=== PATIENT | female | born 1955 | race African-American/Black ===

== ENCOUNTER → 2017-02-02 | Outpatient (CLI) | payer OTHER | LOC: RAD 08:37 | PROVIDERS: ATTEND Family Medicine | DX: M54.5 Low back pain (principal) | CPT/HCPCS: 72148 ==

== ENCOUNTER → 2017-02-14 | Outpatient (CLI) | payer BC, OTHER ==
[2017-02-14 11:17] LABS: HEMATOCRIT 38.9 % (36.0-47.0); HEMOGLOBIN 12.9 g/dL (12.0-15.5); HGB HCT DIFFERENCE -0.2; MEAN CORPUSCULAR HEMOGLOBIN 27.9 pg (27.0-33.4); MEAN CORPUSCULAR HGB CONC 33.1 g/dL (32.0-36.0); MEAN CORPUSCULAR VOLUME 84 fl (80-97); RED BLOOD COUNT 4.62 10^6/uL (3.72-5.28); RED CELL DISTRIBUTION WIDTH 14.5 % (11.5-14.0); WHITE BLOOD COUNT 6.6 10^3/uL (4.0-10.5)
[2017-02-14 11:30] LABS: ALANINE AMINOTRANSFERASE 38 U/L (9-52); ALBUMIN 3.9 g/dL (3.5-5.0); ALKALINE PHOSPHATASE 88 U/L (38-126); ANION GAP 13 (5-19); ASPARTATE AMINO TRANSFERASE 24 U/L (14-36); BILIRUBIN,DIRECT 0.3 mg/dL (0.0-0.4); BILIRUBIN,TOTAL 0.4 mg/dL (0.2-1.3); BLOOD UREA NITROGEN 18 mg/dL (7-20); CALCIUM 9.2 mg/dL (8.4-10.2); CARBON DIOXIDE 29 mmol/L (22-30); CHLORIDE 105 mmol/L (98-107); CHOLESTEROL 212.66 mg/dL (0-200); CREATININE RESULT 0.69 mg/dL (0.52-1.25); Direct HDL 54 mg/dL (>40); GLUCOSE 88 mg/dL (75-110); MAGNESIUM 1.9 mg/dL (1.6-2.3); POTASSIUM 4.5 mmol/L (3.6-5.0); SODIUM 146.7 mmol/L (137-145); TOTAL PROTEIN 6.8 g/dL (6.3-8.2); TRIGLYCERIDES 58 mg/dL (<150)
[2017-02-14 11:42] LABS: DIRECT LDL 137 mg/dL (<100)
== END ==
LOC: OD 09:45
PROVIDERS: ATTEND Internal Medicine Cardiovascular Disease
DX: Z79.899 Other long term (current) drug therapy (principal)
CPT/HCPCS: 36415; 80048; 80061; 80076; 83735; 84443; 85027

== ENCOUNTER → 2017-05-17 | Outpatient (CLI) | payer BC, OTHER ==
[~2017-05-17] MED LIST: REGADENOSON INJ 0.4 MG/5 ML DISP.SYRIN IV ONE
--- NOTE | 2017-05-19 08:37 | RADIOLOGY REPORT ---
STRESS TEST REPORT PATIENT NAME: TYREE FREEDMAN ROOM#: DATE OF SERVICE: 05/17/2017 AGE: 62Y ORDER#: [id number] REFERRING MD: DANIA MATA M.D. INDICATION: For assessment of chest pains. PROCEDURE PERFORMED REST/STRESS SINGLE ISOTOPE CARDIOLITE SPECT IMAGING WITH IV LEXISCAN STRESS AND GATED SPECT IMAGING CLINICAL HISTORY This is a 62-year-old black female with no known coronary artery disease but has cardiac risk factors of hypertension and family history. Current symptomatology includes chest pains. PROCEDURE The patient received IV Lexiscan, 0.4 mg infused over ten seconds and flushed. The resting heart rate was 79 bpm and increased to 111 bpm at end infusion. The resting BP was 109/70 and increased to 137/68 at end infusion. The patient had no symptoms of chest pains. The resting 12 lead EKG showed normal sinus rhythm at 90 bpm, poor R progression in the anterior precordial leads seen. At end infusion, the EKG showed sinus tachycardia, 115 bpm, with mild [address] depression in the inferolateral leads (leads 2, 3, AVF, V4-V6). Myocardial perfusion imaging was performed at rest 60 minutes following injection of 10.6 mCi Cardiolite. Ten seconds after the IV Lexiscan injection, patient injected with 30.4 mCi Cardiolite and flushed. Gated post stress tomographic imaging was performed 60 minutes after stress. FINDINGS The overall quality of the study is good. The left ventricular cavity is noted to be normal in size on both the rest and stress studies. There is no evidence of abnormal transient ischemic dilatation of the left ventricle. The TID ratio was 1.29, this is not confirmed visually. SPECT images showed no evidence of IV Lexiscan induced reversible ischemia and no fixed perfusion defects. The gated SPECT imaging showed normal motion and contraction of all LV segments. The left ventricular ejection fraction was calculated to be 74%. IMPRESSION: MYOCARDIAL PERFUSION IMAGING IS NORMAL. THERE IS NO EVIDENCE OF IV LEXISCAN INDUCED REVERSIBLE ISCHEMIA. NO FIXED PERFUSION DEFECTS. OVERALL LEFT VENTRICULAR SYSTOLIC FUNCTION WAS NORMAL AT 74% EJECTION FRACTION WITH NO REGIONAL WALL MOTION ABNORMALITY SEEN. NO PRIOR STUDIES FOR COMPARISON. INTERPRETING PHYSICIAN: LEN BENOIT M.D. /: KYLE TT: [id number] ID: [id number] /: [id number] TD: [id number] JOB: [id number] cc:Karma HOWELL M.D. > MARYURI
== END ==
LOC: RAD 06:06
PROVIDERS: ATTEND Internal Medicine Cardiovascular Disease
DX: R07.89 Other chest pain (principal)
CPT/HCPCS: 93017; 78452; A9500; J2785; Q9969

== ENCOUNTER → 2017-06-20 | Outpatient (CLI) | payer OTHER ==
--- NOTE | 2017-06-20 17:57 | WOMENS IMAGING REPORT ---
EXAM DESCRIPTION: BILAT SCREENING MAMMO W/CAD COMPLETED DATE/TIME: 06/20/2017 11:22 am REASON FOR STUDY: Z12.31, ROUTINE SCREENING MAMMO Z12.31 ENCNTR SCREEN MAMMOGRAM FOR MALIGNANT NEOP LASM OF ABENA COMPARISON: 10/03/2015 and 09/23/2014. TECHNIQUE: Standard craniocaudal and mediolateral oblique views of each breast recorded using digita l acquisition. LIMITATIONS: None. FINDINGS: No masses, calcifications or architectural distortion. No areas of suspicion. Read with the assistance of CAD. .[facility] - R2 Cenova Version 1.3 .[facility] Imaging - R2 Cenova Version 1.3 .[facility] - R2 Cenova Version 2.4 .[facility] [place] Cenova Version 2.4 .[facility] - R2 Osd Clerk Version 9.2 IMPRESSION: NORMAL MAMMOGRAM. BIRADS 1. BREAST DENSITY: b. There are scattered areas of fibroglandular density. BIRAD: 1 NEGATIVE RECOMMENDATION: ROUTINE SCREENING COMMENT: The patient has been notified of the results by letter per MQSA requirements. Additional no tification policies are in place for contacting patient with suspicious or incomplete findings. Quality ID #225: The [employer] recommends an annual screening mammogram for women aged 40 years or over. This facility utilizes a reminder system to ensure that all patients receive reminder letters, and/or direct phone calls for appointments. This includes reminders for routine scr eening mammograms, diagnostic mammograms, or other Breast Imaging Interventions when appropriate. Th is patient will be placed in the appropriate reminder system. The [employer] (ACR) has developed recommendations for screening MRI of the breast s in certain patient populations, to be used in conjunction with mammography. Breast MRI surveillanc e may be appropriate for women with more than 20% lifetime risk of developing breast cancer as deter mined by genetic testing, significant family history of the disease, or history of mantle radiation f or Hodgkins Disease. ACR Practice Guidelines 2008. TECHNICAL DOCUMENTATION: FINDING NUMBER: (1) ASSESSMENT: (1) JOB ID: [id number] [email or web address]- All Rights Reserved
== END ==
LOC: WI 10:44
PROVIDERS: ATTEND Family Medicine
DX: Z12.31 Encounter for screening mammogram for malignant neoplasm of breast (principal)
CPT/HCPCS: 77067; G0202

== ENCOUNTER 2020-10-19 16:18 | Emergency (ER) | payer OTHER ==
[2020-10-19] MEDS ORDERED: OXYCODONE-ACETAMINOPHEN 5-325 MG TABLET PO ONE (17:17)
--- NOTE | 2020-10-19 17:21 | ER Document Report ---
ED Medical Screen (RME) - General Chief Complaint: Fall Stated Complaint: FALL/RIGHT ELBOW INJURY Time Seen by Provider: 10/19/20 17:16 Primary Care Provider: DANIA MATA MD [Primary Care Provider] - Follow up as needed Notes: HPI: 65-year-old female presenting with injury sustained in a mechanical fall. Tripped and fell forward with her arm outstretched. Complains of pain to the right knee right hip right lower arm and right upper arm. States she did her head, no loss of consciousness denies headache or neck pain is not on blood thinners PHYSICAL EXAMINATION: Moderate tenderness through the right humerus, right forearm. Limited exam for lower extremities but mild tenderness over the right hip and right knee but is able to fully range the leg at the knee I have greeted and performed a rapid initial assessment of this patient. A comprehensive ED assessment and evaluation of the patient, analysis of test results and completion of medical decision making process will be conducted by an additional ED providers. TRAVEL OUTSIDE OF THE [place] IN LAST 30 DAYS: No - Related Data Allergies/Adverse Reactions: No Known Allergies Allergy (Unverified 10/19/20 17:11) Past Medical History - Social History Chew tobacco use (# tins/day): No Frequency of alcohol use: None Drug Abuse: None Physical Exam - Vital signs Vitals: Temp Pulse Resp BP Pulse Ox 97.7 F 90 18 146/94 H 99 10/19/20 16:34 10/19/20 16:34 10/19/20 16:34 10/19/20 16:34 10/19/20 16:34 Course - Vital Signs Vital signs: Temp Pulse Resp BP Pulse Ox 97.7 F 90 18 146/94 H 99 10/19/20 16:34 10/19/20 16:34 10/19/20 16:34 10/19/20 16:34 10/19/20 16:34 Doctor's Discharge - Discharge Referrals: DANIA MATA MD [Primary Care Provider] - Follow up as needed
--- NOTE | 2020-10-19 18:16 | RADIOLOGY REPORT (SQ) ---
EXAM DESCRIPTION: HUMERUS RIGHT IMAGES COMPLETED DATE/TIME: 10/19/2020 5:49 pm REASON FOR STUDY: fall COMPARISON: None. NUMBER OF VIEWS: Two views. TECHNIQUE: Two radiographic images were acquired of the right humerus to include elbow and shoulder in at least one projection. LIMITATIONS: Limited images. Suboptimal views of the shoulder. FINDINGS: MINERALIZATION: Normal. BONES: No acute fracture or dislocation. No worrisome bone lesions. SOFT TISSUES: No obvious swelling or foreign body. OTHER: No other significant finding. IMPRESSION: LIMITED STUDY. NO RADIOGRAPHIC EVIDENCE OF ACUTE INJURY. TECHNICAL DOCUMENTATION: JOB ID: [id number] 2010 [employer]- All Rights Reserved Reading location - IP/workstation name: [email or web address]
--- NOTE | 2020-10-19 18:17 | RADIOLOGY REPORT (SQ) ---
EXAM DESCRIPTION: FOREARM RIGHT IMAGES COMPLETED DATE/TIME: 10/19/2020 5:49 pm REASON FOR STUDY: fall COMPARISON: None. NUMBER OF VIEWS: Two views. TECHNIQUE: Two radiographic images acquired of the right forearm, including elbow and wrist in at le ast one projection. LIMITATIONS: Limited positioning. FINDINGS: MINERALIZATION: Normal. BONES: There is fracture dislocation of the elbow. Limited visualization. There is fracture of the proximal radius and radial head with displacement of the radial head. SOFT TISSUES: No obvious swelling or foreign body. OTHER: No other significant finding. IMPRESSION: LIMITED STUDY. FRACTURE DISLOCATION AT THE ELBOW INVOLVING AT LEAST THE PROXIMAL RADIUS AND RADIAL HEAD. TECHNICAL DOCUMENTATION: JOB ID: [id number] 2010 [email or web address]- All Rights Reserved Reading location - IP/workstation name: [email or web address]
--- NOTE | 2020-10-19 18:18 | RADIOLOGY REPORT (SQ) ---
EXAM DESCRIPTION: HIP RIGHT AP/LATERAL IMAGES COMPLETED DATE/TIME: 10/19/2020 5:49 pm REASON FOR STUDY: fall COMPARISON: None. NUMBER OF VIEWS: Two views. TECHNIQUE: AP pelvis and additional frog legview of the right hip. LIMITATIONS: Limited visualization of the upper pelvis and lower lumbar spine. FINDINGS: MINERALIZATION: Normal. RIGHT HIP: No fracture or dislocation. No worrisome bone lesions. LEFT HIP: No fracture or dislocation. No worrisome bone lesions. Limited views. PUBIS AND ISCHIUM: Sclerotic changes at few defect. No fracture. PELVIS: No fracture. SACRUM: No fracture or dislocation. No worrisome bone lesions. LOWER LUMBAR SPINE: No fracture or dislocation. No worrisome bone lesions. No significant disc disea se. SOFT TISSUES: No findings. OTHER: No other significant finding. IMPRESSION: NEGATIVE STUDY OF THE RIGHT HIP. NO RADIOGRAPHIC EVIDENCE OF ACUTE INJURY. TECHNICAL DOCUMENTATION: JOB ID: [id number] 2010 [employer]- All Rights Reserved Reading location - IP/workstation name: [email or web address]
--- NOTE | 2020-10-19 18:19 | RADIOLOGY REPORT (SQ) ---
EXAM DESCRIPTION: KNEE RIGHT 4 VIEWS IMAGES COMPLETED DATE/TIME: 10/19/2020 5:49 pm REASON FOR STUDY: fall COMPARISON: None. NUMBER OF VIEWS: Four views. TECHNIQUE: AP, lateral, and both oblique radiographic images acquired of the right knee. LIMITATIONS: None. FINDINGS: MINERALIZATION: Normal. BONES: No acute fracture or dislocation. Joint space narrowing with small osteophytes. No worrisome bone lesions. JOINT: No effusion. SOFT TISSUES: No soft tissue swelling. No radio-opaque foreign body. OTHER: No other significant finding. IMPRESSION: DEGENERATIVE CHANGES. NO RADIOGRAPHIC EVIDENCE OF ACUTE INJURY. TECHNICAL DOCUMENTATION: JOB ID: [id number] 2010 [employer]- All Rights Reserved Reading location - IP/workstation name: [email or web address]
--- NOTE | 2020-10-19 18:29 | ER Document Report ---
ED General - General Chief Complaint: Fall Stated Complaint: FALL/RIGHT ELBOW INJURY Time Seen by Provider: 10/19/20 17:16 Primary Care Provider: DANIA MATA MD [PEDIATRICS] - Follow up as needed THONY SCHNEIDER DO [ACTIVE STAFF] - Follow up as needed TRAVEL OUTSIDE OF THE [place] IN LAST 30 DAYS: No - HPI Notes: 65-year-old female presents with right elbow pain after she fell. Patient states that she was at home, she tripped over a cord and fell to the ground with her arm outstretched. This occurred around 3:20 PM. She states she "just barely" hit her head, no loss of consciousness. Denies use of blood thinners or aspirin. She complains of pain to her right knee and hip in addition to the arm pain. Has been ambulatory since the fall. No medications taken prior to arrival. - Related Data Allergies/Adverse Reactions: No Known Allergies Allergy (Unverified 10/19/20 17:11) Past Medical History - General Information source: Patient - Social History Smoking Status: Never Smoker Chew tobacco use (# tins/day): No Frequency of alcohol use: None Drug Abuse: None Family History: Reviewed & Not Pertinent Review of Systems - Review of Systems Constitutional: No symptoms reported EENT: No symptoms reported Cardiovascular: No symptoms reported Respiratory: No symptoms reported Gastrointestinal: No symptoms reported Genitourinary: No symptoms reported Female Genitourinary: No symptoms reported Musculoskeletal: See HPI Skin: No symptoms reported Hematologic/Lymphatic: No symptoms reported Neurological/Psychological: No symptoms reported Physical Exam - Vital signs Vitals: Temp Pulse Resp BP Pulse Ox 97.7 F 90 18 146/94 H 99 10/19/20 16:34 10/19/20 16:34 10/19/20 16:34 10/19/20 16:34 10/19/20 16:34 - General General appearance: Appears well, Alert In distress: None - HEENT Head: Normocephalic, Atraumatic. No: Abrasions, Ecchymosis Extraocular movements intact: Yes Pupils: PERRL Neck: Other - Full range of motion, no midline tenderness - Respiratory Chest status: Nontender Breath sounds: Normal - Cardiovascular Rhythm: Regular Heart sounds: Normal auscultation Pulses: Normal: Radial - Abdominal Tenderness: Nontender - Extremities Arm: Other - No tenderness to right shoulder or upper arm Elbow: Tender - Right, lateral aspect, Limited ROM - Patient refusing to move arm during exam, able to have passive supination though this creates pain Wrist: Tender - Right Hand: Nontender Hip: Nontender - Neurological Neuro grossly intact: Yes Cognition: Normal Orientation: AAOx4 Notes: Sensation intact to right arm - Psychological Associated symptoms: Normal affect - Skin Skin Temperature: Warm Course - Re-evaluation Re-evalutation: 65-year-old female with right elbow pain status post FOOSH at home. She has tenderness to the lateral aspect with decreased range of motion, pain with supination, held in pronation. No tenderness to right shoulder or humerus. No tenderness to right hip or lower leg. She had imaging done through the triage process. There appears to be a fracture of the radial head seen on the humerus film, will need dedicated film as unable to fully visualize. The hip x-ray and knee x-ray are negative as well. Will give dose of morphine and then attempt to reimage elbow. 10/19/20 21:19 Dedicated elbow x-ray obtained and images reviewed, report available. Per radiology there is a comminuted fracture of the proximal radial head with rotation and displacement. Concerned that this fracture fragment will not be amenable to reduction. I discussed with Dr. Schneider, he states that patient can be splinted in pronation/position of comfort and he will see her in the office tomorrow. 10/19/20 21:23 Patient updated on plan to splint and see Ortho in the morning. She reports pain is better. She is now able to give a thumbs up. Will give her additional dose of morphine to help with the splint process. Splint applied by tech. Patient instructed to follow-up with Ortho. Return precautions given, stable at time of discharge. - Vital Signs Vital signs: Temp Pulse Resp BP Pulse Ox 98.2 F 87 16 127/82 H 96 10/19/20 23:35 10/19/20 23:35 10/19/20 23:35 10/19/20 23:35 10/19/20 23:35 - Diagnostic Test Radiology reviewed: Image reviewed, Reports reviewed Discharge - Discharge Clinical Impression: Radial head fracture, closed Qualifiers: Encounter type: initial encounter Fracture alignment: displaced Laterality: right Qualified Code(s): S52.121A - Displaced fracture of head of right radius, initial encounter for closed fracture Accidental fall Qualifiers: Encounter type: initial encounter Qualified Code(s): W19.XXXA - Unspecified fall, initial encounter Disposition: HOME, SELF-CARE Additional Instructions: Please call Dr. Schneider's office first thing in the morning, you need to be seen tomorrow for further management of your fracture. Please keep arm in splint until you can be seen. Use De Smet as needed for pain control. Return to the emergency department for any concerning worsening symptoms. Prescriptions: Hydrocodone/Acetaminophen [De Smet 5-325 mg Tablet] 1 tab PO Q4H PRN #15 tablet PRN Reason: Referrals: DANIA MATA MD [PEDIATRICS] - Follow up as needed THONY SCHNEIDER DO [ACTIVE STAFF] - Follow up as needed
[2020-10-19] MEDS ORDERED: MORPHINE SULFATE 10 MG/ML INJ IV ONE ×2 (18:50→21:22)
--- NOTE | 2020-10-19 20:59 | RADIOLOGY REPORT (SQ) ---
EXAM DESCRIPTION: WRIST RIGHT 2 VIEWS CLINICAL HISTORY: 65 years Female, eval fxc COMPARISON: None. FINDINGS: There is chronic bowing of the distal ulna with remodeling of the distal radial ulnar joint suggesting old trauma. Narrowing of the radiocarpal joint is seen as well as the first CMC and STT joint. There is degenerative change at the first CMC and STT joint. No acute fracture is identified. IMPRESSION: Chronic changes of the distal radial ulnar joint suggesting old trauma. 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 No acute fractures seen.
--- NOTE | 2020-10-19 21:04 | RADIOLOGY REPORT (SQ) ---
EXAM DESCRIPTION: ELBOW RIGHT AP/LAT CLINICAL HISTORY: 65 years Female, elbow fxc COMPARISON: None. FINDINGS: Comminuted fracture of the proximal radial head is identified and the articular surface appears to be fragmented and rotated anteriorly with respect to the elbow joint. There is a large elbow effusion and diffuse soft tissue swelling. IMPRESSION: Comminuted, intra-articular fracture of the radial head with rotation and displacement.
[2020-10-19] MEDS ORDERED: HYDROCODONE/ACETAMINOPHEN 5-325 MG (6 TAB/ER DISP) PO PRN (22:31)
[2020-10-19 23:37] VITALS: BP 127/82
== END 2020-10-19 23:35 | disposition home or self-care (01) ==
LOC: ER 16:18
DX: S52.121A Displaced fracture of head of right radius, initial encounter for closed fracture (principal); M25.561 Pain in right knee; M25.551 Pain in right hip; W01.0XXA Fall on same level from slipping, tripping and stumbling without subsequent striking against object, initial encounter; Y92.009 Unspecified place in unspecified non-institutional (private) residence as the place of occurrence of the external cause; M19.031 Primary osteoarthritis, right wrist
CPT/HCPCS: 96376; 99284; 96374; 73070; 73090; 73502; 73060; 73564; 73100; 29125; J2270

== ENCOUNTER 2020-10-30 05:29 | Day surgery (SDC) | payer OTHER ==
[2020-10-27 12:26] LABS: HEMATOCRIT 40.6 % (36.0-47.0); HEMOGLOBIN 13.6 g/dL (12.0-15.5); MEAN CORPUSCULAR HEMOGLOBIN 28.9 pg (27.0-33.4); MEAN CORPUSCULAR HGB CONC 33.5 g/dL (32.0-36.0); MEAN CORPUSCULAR VOLUME 86 fl (80-97); PLATELET COUNT 240 10^3/uL (150-450); RED CELL DISTRIBUTION WIDTH 14.6 % (11.5-14.0)
[2020-10-27 12:49] LABS: ANION GAP 9 (5-19); BLOOD UREA NITROGEN 16 mg/dL (7-20); CALCIUM 9.3 mg/dL (8.4-10.2); CARBON DIOXIDE 31 mmol/L (22-30); CHLORIDE 98 mmol/L (98-107); GLUCOSE 92 mg/dL (75-110); POTASSIUM 3.6 mmol/L (3.6-5.0)
--- NOTE | 2020-10-28 10:00 | EKG REPORT ---
SEVERITY:- ABNORMAL ECG - SINUS RHYTHM PROBABLE LEFT ATRIAL ABNORMALITY BORDERLINE LEFT AXIS DEVIATION ABNRM R PROG, CONSIDER ASMI OR LEAD PLACEMENT : Confirmed by: Trenton Donis MD 28-Oct-2020 09:59:13
[~2020-10-30 05:29] MED LIST changes: +CEFAZOLIN 2 GM/D5W RTU 2 GM/50 ML RTUPB IV ONE; +CEFAZOLIN 2 GM/D5W RTU 2 GM/50 ML RTUPB IV PRN; -REGADENOSON INJ 0.4 MG/5 ML DISP.SYRIN IV ONE
[2020-10-30] MEDS ORDERED: LIDOCAINE 2% INJ (20 MG/ML) 20 ML MDV ONE (06:55)
[2020-10-30] MEDS ORDERED: FENTANYL CITRATE INJ/PF 100 MCG/2 ML AMPUL ONE (06:57)
[2020-10-30] MEDS ORDERED: PROPOFOL INJ 200 MG/20 ML VIAL IV ONE (06:57)
[2020-10-30] MEDS ORDERED: DEXAMETHASONE SOD PHOSPHATE INJ 4 MG/1 ML VIAL ONE (06:57)
[2020-10-30] MEDS ORDERED: MIDAZOLAM 2 MG/2 ML INJ ONE (06:57)
[2020-10-30] MEDS ORDERED: ONDANSETRON HCL INJ/PF 4 MG/2 ML SDV ONE (06:57)
[2020-10-30] MEDS ORDERED: ONDANSETRON HCL INJ/PF 4 MG/2 ML SDV IV PRN ×2 (07:51→10:09)
[2020-10-30] MEDS ORDERED: MORPHINE SULFATE 10 MG/ML INJ IV PRN ×2 (07:51→10:09)
[2020-10-30] MEDS ORDERED: MEPERIDINE HCL/PF INJ 25 MG/1 ML DISP.SYRIN IV PRN (07:51)
[2020-10-30] MEDS ORDERED: FENTANYL CITRATE INJ/PF 100 MCG/2 ML AMPUL IV PRN ×3 (07:51)
[2020-10-30] MEDS ORDERED: DIPHENHYDRAMINE HCL 50 MG/ML VIAL IV PRN (07:51)
[2020-10-30] MEDS ORDERED: OXYCODONE-ACETAMINOPHEN 5-325 MG TABLET PO PRN (10:09)
[2020-10-30] MEDS ORDERED: ROPIVACAINE HCL 0.2% INJ/PF (2 MG/ML) 20 ML SDV ONE (10:09)
[2020-10-30] MEDS ORDERED: RINGERS SOLUTION,LACTATED 1,000 ML IV PRN (10:09)
[2020-10-30] MEDS ORDERED: KETOROLAC TROMETHAMINE 60 MG/2 ML SDV IM PRN (10:09)
--- NOTE | 2020-10-30 10:24 | Operative Report ---
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 OPERATION: Right radial head arthroplasty with LCL reconstruction. SURGEON: MAY LEDESMA JR ANESTHESIA: GA COMPLICATIONS: Mild to moderate persistent laxity. However not unstable to the point of dislocation. ESTIMATED BLOOD LOSS: 40 cc PROCEDURE: The patient suffered a fall on outstretched hand approximately 10 days ago. They denied at that time any symptoms of elbow dislocation or self reduction in the field. They presented to the emergency department and at that time x-rays were taken without any reduction maneuvers that showed an intact and reduced r ight elbow with a associated severely comminuted radial head fracture. I discussed options with the patient including fixation versus radial head replacement. The patient consented to operative intervention understanding risks and benefits including bleeding infection damage to surrounding nerves or vasculature as well as ongoing pain, instability or stiffness. Patient was brought to the operating suite laid supine on the operating table. The right upper extremity was prepped and draped in standard sterile fashion. 2 g Ancef were given preoperatively. An appropriate timeout was performed. The right upper extremity had a sterile tourniquet applied and was then angulated with an Esmarch. An incision was made over the lateral epicondyle and sharply carried down to fascia. The EDC was then identified. I also identified the lateral epicondyle and the supinator crest. Sharp dissection off of the lateral crest was performed in order to ensure appropriate anterior position as we carried this down into the EDC. I stayed anterior to the LCL insertion on the lateral epicondyle. At this point the case the LCL appeared to be intact. Distally I bluntly dissected through musculature in order to avoid any potential injury to the PIN. We were able to identify the fracture and remove 2 large fracture fragments that accounted for approximately 6% of the radial head. There was substantial small comminuted pieces that at the time I believed made up the third of the missing radial head. I carefully protected the radial neck and the surrounding soft tissues with 2 baby Bautista's and a dunne elevator. We proceeded to saw at the neck of the radius below the fracture. After this was performed we reamed to appropriate depth in order to obtain a stem that allowed for appropriate length and then applied a radial head and stem trial and reduced the radial head. At this time was apparent that the LCL was deficient as the entire sleeve reflected off of the lateral epicondyle. This led to no substantial appreciable clunk of reduction of the radial head. Based on direct visualization of the coronoid through the wound, we chose the appropriate radial head and stem combination to allow for near anatomic positioning of the radial head. This seated rather easily and given the LCL deficiency it was difficult to evaluate appropriate tension. At that time x-rays revealed that it was at appropriate position and I wanted to avoid overstuffing the joint. The wound was then copiously irrigated with sterile saline solution. The final implants were chosen and the stem was impacted. An Orgoo explor 7 x 26 mm stem was chosen in conjunction with a 14 x 22 mm radial head. The stem was impacted followed by application of the radial head and tightening of the setscrew. After impaction, the final implants seated well at the appropriate position and the radial head was then reduced. We proceeded to make to drill holes at the LCL insertion on the lateral epicondyle for transosseous tunnels for LCL reconstruction. I passed two #2 FiberWire's through these tunnels and then in a running locked fashion ran the FiberWire's through the EDC split and imbricated the LCL. I then brought this back down to the tunnels and individually tightened and sutured the LCL back to its origin. Following this x-rays demonstrated a fair amount of subluxation and what appeared to be a piece of bone fragment between the trochlea and the olecranon. Released to my reconstruction and removed the radial head in order to gain access to the olecranon. Of note there was ecchymotic lax tissue visualized medially through the joint that may have represented an associated MCL injury. I was able to identify the bony fragment and remove it followed by thorough irrigation. We then reinserted the radial head neck construct as a unit and impacted into place with appropriate seating. This was then rereduced and the LCL reconstruction was reperformed. The end strands of FiberWire were carried through the supinator tissue back to the lateral ridge. The wound was then copiously irrigated again. under fluoroscopy we checked AP and lateral views as well as live mobile views. The patient was able to achieve full extension and flexion without dislocation however there was some mild appreciable subluxation. On x- ray, the radial head appeared to be intact with the capitellum however there seems to be some subluxation of the olecranon. Multiple attempts at range of motion and dislocation found this to be ultimately be stable without concern for dislocation. I then used a 2-0 Monocryl in the subcutaneous tissue in running fashion. Finally I used a 2-0 nylon in the skin in a running baseball stitch. The right elbow was then placed in a sterile dressing and a splint in flexion and pronation. The patient was then awakened from anesthesia and transferred to the PACU in stable condition. In the PACU I did a neurovascular check the patient maintained radial nerve sensation and motion as well as ulnar and median nerve sensation and motion. I explained to the patient that we will follow her closely if she continues to have any symptoms of subluxation we may need to rev isit the elbow for further stabilization procedure.
--- NOTE | 2020-10-30 10:36 | Discharge Summary ---
Discharge Summary (SDC) - Discharge Final Diagnosis: Right radial head fracture, LCL deficiency. Date of Surgery: 10/30/20 Discharge Date: 10/30/20 Condition: Stable Forms: ASU Anesthesia D/C Instruction, Discharge POC-Surgical Service Treatment or Instructions: Patient was placed in a splint in the operating room. They are to keep this in place until seen in the office. No dressing changes until that time Keep splint clean and dry and intact. Sling for comfort. Nonweightbearing right upper extremity. Return to the office for any acute changes or concerns Pain medication prescribed previously, take as prescribed Follow me in the office in approximately 10 days for a wound check and further x-ray. Referrals: MAY LEDESMA JR, DO [ACTIVE PROVISIONAL STAFF] - Discharge Diet: As Tolerated Respiratory Treatments at Home: Deep Breathing/Coughing Discharge Activity: Activity As Tolerated, No Lifting/Push/Pulling, No tub bath Report the Following to Your Physician Immediately: Shortness of Breath, Fever over 101 Degrees, Unusual Bleeding, Drainage-Yellow
[2020-10-30] MEDS ORDERED: OXYCODONE-ACETAMINOPHEN 5-325 MG TABLET ONE (11:17)
--- NOTE | 2020-10-30 12:45 | RADIOLOGY REPORT (SQ) ---
EXAM DESCRIPTION: ELBOW RIGHT AP/LAT IMAGES COMPLETED DATE/TIME: 10/30/2020 11:48 am REASON FOR STUDY: post op S52.121A DISP FX OF HEAD OF RIGHT RADIUS, INIT FOR CLOS FX COMPARISON: 10/19/2020 NUMBER OF VIEWS: Four views. TECHNIQUE: AP, lateral, and both oblique radiographic images acquired of the right elbow. LIMITATIONS: None. FINDINGS: MINERALIZATION: Normal. BONES: Status post hemiarthroplasty with radial head prosthesis. Mild subluxation of the humeral uln ar joint. JOINT: A small joint effusion persists. SOFT TISSUES: Soft tissue edema is not unexpected in the postsurgical setting. OTHER: No other significant finding. IMPRESSION: Status post hemiarthroplasty without evidence of hardware complication. Mild subluxatio n of the humeral ulnar joint. TECHNICAL DOCUMENTATION: JOB ID: [id number] 2010 [employer]- All Rights Reserved Reading location - IP/workstation name: [email or web address]
[2020-10-30 13:09] VITALS: BP 172/93
--- NOTE | 2020-10-30 15:06 | RADIOLOGY REPORT (SQ) ---
EXAM DESCRIPTION: NO CHG FLUORO; ELBOW RIGHT AP/LAT IMAGES COMPLETED DATE/TIME: 10/30/2020 2:29 pm REASON FOR STUDY: RIGHT ELBOW ARTHROPLASTY ASSISTED WITH FLUORO IN OR S52.121A DISP FX OF HEAD OF R IGHT RADIUS, INIT FOR CLOS FX COMPARISON: None. FLUOROSCOPY TIME: 1 minutes 40 seconds 5 images saved to PACS. TECHNIQUE: Intra-operative images acquired during surgical procedure to evaluate progress. NUMBER OF IMAGES: 1 minutes 48 seconds LIMITATIONS: None. FINDINGS: Limited intraoperative fluoroscopic images demonstrate evidence of elbow arthroplasty plac ement. Please see operative report for detailed description. IMPRESSION: IMAGE(S) OBTAINED DURING PROCEDURE. COMMENT: Quality ID 145: Final reports for procedures using fluoroscopy that document radiation exp osure indices, or exposure time and number of fluorographic images (if radiation exposure indices are not available) Please consult full operative report of the attending physician for description of the procedure. TECHNICAL DOCUMENTATION: JOB ID: [id number] 2010 [employer]- All Rights Reserved Reading location - IP/workstation name: [email or web address]
--- NOTE | 2020-10-30 15:06 | RADIOLOGY REPORT (SQ) ---
EXAM DESCRIPTION: NO CHG FLUORO; ELBOW RIGHT AP/LAT IMAGES COMPLETED DATE/TIME: 10/30/2020 2:29 pm REASON FOR STUDY: RIGHT ELBOW ARTHROPLASTY ASSISTED WITH FLUORO IN OR S52.121A DISP FX OF HEAD OF R IGHT RADIUS, INIT FOR CLOS FX COMPARISON: None. FLUOROSCOPY TIME: 1 minutes 40 seconds 5 images saved to PACS. TECHNIQUE: Intra-operative images acquired during surgical procedure to evaluate progress. NUMBER OF IMAGES: 1 minutes 48 seconds LIMITATIONS: None. FINDINGS: Limited intraoperative fluoroscopic images demonstrate evidence of elbow arthroplasty plac ement. Please see operative report for detailed description. IMPRESSION: IMAGE(S) OBTAINED DURING PROCEDURE. COMMENT: Quality ID 145: Final reports for procedures using fluoroscopy that document radiation exp osure indices, or exposure time and number of fluorographic images (if radiation exposure indices are not available) Please consult full operative report of the attending physician for description of the procedure. TECHNICAL DOCUMENTATION: JOB ID: [id number] 2010 [employer]- All Rights Reserved Reading location - IP/workstation name: [email or web address]
[2020-10-30] MEDS ORDERED: ROCURONIUM BROMIDE INJ 50 MG/5 ML VIAL IV ONE (15:56)
[2020-10-30] MEDS ORDERED: SUCCINYLCHOLINE CHLORIDE INJ 200 MG/10 ML VIAL ONE (15:56)
== END 2020-10-30 12:55 | disposition home or self-care (01) ==
LOC: OROUT 05:29
PROVIDERS: ATTEND Orthopaedic Surgery
DX: S52.121A Displaced fracture of head of right radius, initial encounter for closed fracture (principal); W01.0XXA Fall on same level from slipping, tripping and stumbling without subsequent striking against object, initial encounter; M24.221 Disorder of ligament, right elbow; Z20.828 Contact with and (suspected) exposure to other viral communicable diseases; I10 Essential (primary) hypertension; Z79.890 Hormone replacement therapy; Z79.899 Other long term (current) drug therapy; E03.9 Hypothyroidism, unspecified
CPT/HCPCS: 93005; 36415 ×2; 84132; 85027; 87635; 80048; 73070; 93010; 24366; 24999; J2250; J3490 ×2; J1100; J3010; J0330; J2405; J2704; J0690; J2795; C9803

== ENCOUNTER 2020-11-14 10:32 | Day surgery (SDC) | payer OTHER ==
[2020-11-14] MEDS ORDERED: HYDROMORPHONE HCL INJ/PF 2 MG/ML AMPULE ONE (10:47)
[2020-11-14] MEDS ORDERED: BUPIVACAINE HCL 0.5 % INJ/PF 30 ML SDV ONE (10:47)
[2020-11-14] MEDS ORDERED: FENTANYL CITRATE INJ/PF 100 MCG/2 ML AMPUL ONE (10:47)
[2020-11-14] MEDS ORDERED: MIDAZOLAM 2 MG/2 ML INJ ONE (10:47)
[2020-11-14] MEDS ORDERED: EPHEDRINE SULFATE INJ 50 MG/1 ML AMPULE ONE (10:47)
[2020-11-14] MEDS ORDERED: PROPOFOL INJ 200 MG/20 ML VIAL IV ONE (10:48)
[2020-11-14] MEDS ORDERED: DIPHENHYDRAMINE HCL 50 MG/ML VIAL IV PRN (13:08)
[2020-11-14] MEDS ORDERED: MEPERIDINE HCL/PF INJ 25 MG/1 ML DISP.SYRIN IV PRN (13:08)
[2020-11-14] MEDS ORDERED: OXYCODONE-ACETAMINOPHEN 5-325 MG TABLET PO PRN ×3 (13:08→14:47)
[2020-11-14] MEDS ORDERED: FENTANYL CITRATE INJ/PF 100 MCG/2 ML AMPUL IV PRN ×3 (13:08)
[2020-11-14] MEDS ORDERED: PROMETHAZINE HCL INJ 25 MG/1 ML VIAL IV PRN (13:08)
[2020-11-14] MEDS ORDERED: MORPHINE SULFATE 10 MG/ML INJ IV PRN ×2 (13:08→14:47)
[2020-11-14] MEDS ORDERED: METOCLOPRAMIDE HCL INJ/PF 10 MG/2 ML SDV ONE (14:23)
[2020-11-14] MEDS ORDERED: DEXAMETHASONE SOD PHOSPHATE INJ 4 MG/1 ML VIAL ONE (14:23)
[2020-11-14] MEDS ORDERED: ONDANSETRON HCL INJ/PF 4 MG/2 ML SDV ONE (14:23)
[2020-11-14] MEDS ORDERED: ROCURONIUM BROMIDE INJ 50 MG/5 ML VIAL IV ONE (14:23)
[2020-11-14] MEDS ORDERED: DIPHENHYDRAMINE HCL 50 MG/ML VIAL ONE (14:23)
[2020-11-14] MEDS ORDERED: SUCCINYLCHOLINE CHLORIDE INJ 200 MG/10 ML VIAL ONE (14:23)
[2020-11-14] MEDS ORDERED: ROPIVACAINE HCL 0.5% INJ/PF (5 MG/1 ML) 30 ML SDV ONE (14:44)
[2020-11-14] MEDS ORDERED: RINGERS SOLUTION,LACTATED 1,000 ML IV PRN (14:47)
[2020-11-14] MEDS ORDERED: KETOROLAC TROMETHAMINE 60 MG/2 ML SDV IM PRN (14:47)
[2020-11-14] MEDS ORDERED: ONDANSETRON HCL INJ/PF 4 MG/2 ML SDV IV PRN (14:47)
--- NOTE | 2020-11-14 14:58 | RADIOLOGY REPORT (SQ) ---
EXAM DESCRIPTION: ELBOW RIGHT AP/LAT; NO CHG FLUORO IMAGES COMPLETED DATE/TIME: 11/14/2020 2:43 pm REASON FOR STUDY: RIGHT ELBOW REVISION ASSISTED WITH FLUORO IN OR S52.121A DISP FX OF HEAD OF RIGHT RADIUS, INIT FOR CLOS FX COMPARISON: None. FLUOROSCOPY TIME: 0.4 minutes 5 images saved to PACS. TECHNIQUE: Intra-operative images acquired during surgical procedure to evaluate progress. NUMBER OF IMAGES: 5 LIMITATIONS: None. FINDINGS: Images in fluoro document replacement of the radial head. IMPRESSION: Replacement of the radial head. Refer to operative note for further information. COMMENT: Quality ID 145: Final reports for procedures using fluoroscopy that document radiation exp osure indices, or exposure time and number of fluorographic images (if radiation exposure indices are not available) Please consult full operative report of the attending physician for description of the procedure. TECHNICAL DOCUMENTATION: JOB ID: [id number] 2010 [employer]- All Rights Reserved Reading location - IP/workstation name: [email or web address]
--- NOTE | 2020-11-14 14:58 | RADIOLOGY REPORT (SQ) ---
EXAM DESCRIPTION: ELBOW RIGHT AP/LAT; NO CHG FLUORO IMAGES COMPLETED DATE/TIME: 11/14/2020 2:43 pm REASON FOR STUDY: RIGHT ELBOW REVISION ASSISTED WITH FLUORO IN OR S52.121A DISP FX OF HEAD OF RIGHT RADIUS, INIT FOR CLOS FX COMPARISON: None. FLUOROSCOPY TIME: 0.4 minutes 5 images saved to PACS. TECHNIQUE: Intra-operative images acquired during surgical procedure to evaluate progress. NUMBER OF IMAGES: 5 LIMITATIONS: None. FINDINGS: Images in fluoro document replacement of the radial head. IMPRESSION: Replacement of the radial head. Refer to operative note for further information. COMMENT: Quality ID 145: Final reports for procedures using fluoroscopy that document radiation exp osure indices, or exposure time and number of fluorographic images (if radiation exposure indices are not available) Please consult full operative report of the attending physician for description of the procedure. TECHNICAL DOCUMENTATION: JOB ID: [id number] 2010 [employer]- All Rights Reserved Reading location - IP/workstation name: [email or web address]
--- NOTE | 2020-11-14 15:14 | Operative Report ---
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 OPERATION: Right radial head arthroplasty revision, LCL reconstruction. SURGEON: MAY LEDESMA JR 1ST [employer]VENUE SPECIALIST: THONY SCHNEIDER ANESTHESIA: GA COMPLICATIONS: The patient underwent a right radial head replacement approximately 2 weeks ago and was seen in my office this past Tuesday. X-rays there reveal continued subluxation of the elbow. We discussed treatment options including revision radial head replacement with LCL reconstruction and potentially MCL reconstruction. The patient was brought to the operating suite laid supine on the operating table. They are placed under general anesthesia. An appropriate timeout was performed and C arm was used to evaluate the range of motion of the elbow. The right elbow was taken through a range of motion as well as medial lateral stress. She continues to have subluxation of the ulnohumeral joint on direct lateral view. Of note, patient seems to have developed significant swelling in the right upper extremity from mid brachium to the hand. This worsened in the interval since seen in my office. When taken the patient through a range of motion, sanguinous fluid was expressed through the wound consistent with a hematoma. Dr. Schneider joint in the case and agreed with the plan. Right upper extremities then prepped and draped in standard sterile fashion. A second timeout was performed and the prior incision was utilized. Sharply incised through the prior suture material. Any loose sutures were removed. We encountered the fascia and the prior LCL repair was under appropriate tension and remained intact. I incised through the FiberWire allowing exposure of the radial head and the elbow joint. All of the FiberWire was removed at that point. The radial head implant was unscrewed and removed. This was a 14 mm x 22 millimeters in diameter radial head. We trialed a 10 x 20 which had good positioning and appeared to be appropriate under fluoroscopy. The wound was then copiously irrigated with sterile saline solution. The real was selected and screwed into place. I explored the wound for any potential bleeders as she did seem to slowly be accumulating blood into the wound. Thorough exploration did not yield any active bleeders but rather diffuse synovial bleeding. After this we took the elbow through a range of motion again to evaluate for potential sources of instability. The patient had relative stability at full flexion as well as full extension but there seemed to be some laxity in mid range of motion which was more exacerbated with pronation rather than supination. We proceeded with revising the LCL repair. My prior bone tunnel was used to pass a FiberWire through which was then taken into the LCL and closed with the EDC. This was run proximal to distal back proximal and we attempted to suture this down firmly to the bone tunnel. Unfortunately the bone tunnel pulled through. I utilized the second bone tunnel that was available to achieve good provisional tension. A 3.5 mm swivel lock was then used in the center of rotation. We started with a drilled and a tap and then applied the swivel lock bringing the suture ends from the prior repair down with the swivel lock. The fiber tape and the swivel lock was then used to oversew and retention the LCL. The wound was then irrigated again with dilute Betadine solution. The remaining portion of the supinator was then closed with the surrounding fascia with an 0 PDS. A 2-0 Quill was then used to close the subcutaneous tissue. This was followed with a running 3-0 nylon in the skin. A sterile dressing was then placed followed by a well-padded elbow splint in neutral position. The patient was then awakened from anesthesia and transferred to PACU in stable condition. Evaluation of the PACU revealed that she still had neurovascular intact to the right upper extremity.
[2020-11-14 16:36] VITALS: BP 153/88
[2020-11-15] MEDS ORDERED: CHOLECALCIFEROL (D3) 1,000 UNIT (25 MCG) TABLET PO SCH (10:00)
[2020-11-15] MEDS ORDERED: LEVOTHYROXINE SODIUM 0.088 MG TABLET PO SCH (10:00)
[2020-11-15] MEDS ORDERED: HYDROCHLOROTHIAZIDE 12.5 MG TABLET PO SCH (10:00)
== END 2020-11-14 16:30 | disposition home or self-care (01) ==
LOC: OROUT 10:32
PROVIDERS: ATTEND Orthopaedic Surgery
DX: T84.028A Dislocation of other internal joint prosthesis, initial encounter (principal); Y83.8 Other surgical procedures as the cause of abnormal reaction of the patient, or of later complication, without mention of misadventure at the time of the procedure; Z20.828 Contact with and (suspected) exposure to other viral communicable diseases; E03.9 Hypothyroidism, unspecified; I10 Essential (primary) hypertension; Z79.890 Hormone replacement therapy; Z79.899 Other long term (current) drug therapy
CPT/HCPCS: 36415; 84132; 87635; 73070; 24366; 24999; J2795; J2250; J3010; J2704; J0690; C9803; 01760; 64415; 76942; J0330; J1100; J1170; J1200; J2405; J2765; J3490